=== PATIENT | female | born 1940 | race African-American/Black ===

== ENCOUNTER 2016-11-23 14:10 | Inpatient (IN) | payer OTHER ==
[2016-11-23] VITALS (23 sets, daily range): BP systolic 103–140; BP diastolic 45–95
[~2016-11-23] VITALS: Ht 160 cm; Wt 47.6 kg
[2016-11-23] MEDS ORDERED: SODIUM CHLORIDE 0.9% 1000ML BAG (SEPSIS BOLUS) IV ONE (14:45)
[2016-11-23 15:20] LABS: HEMATOCRIT. 51.8 % (36.0-48.0); MEAN CORPUSCULAR HEMOGLOBIN 29.5 pg (28.0-32.0); MEAN CORPUSCULAR VOLUME 89.6 fL (81.0-99.0); MEAN PLATELET VOLUME 8.9 fl (7.4-10.4); PLATELET 548 x1000/uL (130-400); RED BLOOD CELL COUNT 5.78 mill/uL (4.2-5.4); RED CELL DISTRIBUTION WIDTH 17.9 % (11.6-14.6)
[2016-11-23 15:21] LABS: CLARITY URINE CLEAR (CLEAR); COLOR URINE YELLOW (YELLOW); GLUCOSE URINE NEGATIVE (NEGATIVE); KETONES URINE NEGATIVE (NEGATIVE); LEUKOCYTE ESTERASE URINE NEGATIVE (NEGATIVE); NITRITE URINE NEGATIVE (NEGATIVE); OCCULT BLOOD URINE 1+ (NEGATIVE); PROTEIN URINE 2+ (NEGATIVE); SPECIFIC GRAVITY URINE 1.018 (1.005-1.030)
[2016-11-23 15:45] LABS: INR 1.3; PROTHROMBIN TIME 13.6 sec (9.4-11.6)
[2016-11-23] MEDS ORDERED: LEVOFLOXACIN 750MG PREMIX 150 ML IV NR (16:00)
[2016-11-23] MEDS ORDERED: METHYLPREDNISOLONE SOD SUCC 125 MG/2 ML VIAL IV ONE (16:00)
[2016-11-23] MEDS ORDERED: MIDAZOLAM HCL 50 MG in DEXTROSE 5% WATER 40 ML IV ONE (16:00)
[2016-11-23] MEDS ORDERED: MIDAZOLAM HCL 50 MG in DEXTROSE 5% WATER 40 ML IV NR (16:00)
[2016-11-23 16:01] LABS: CHLORIDE 105 mEq/L (98-107)
[2016-11-23 16:08] LABS: CARBON DIOXIDE 25 mEq/L (21-32)
[2016-11-23] MEDS ORDERED: VANCOMYCIN 1 G PREMIX 200 ML IV SCH (16:15)
[2016-11-23 16:21] LABS: BG BASE EXCESS -5.5 mmol/L (-2.0-2.0); BG DEOXYHEMOGLOBIN 0.8 % (0.0-5.0); BG FRACTION INSPIRED OXYGEN 100; BG HCO3 ACT 26.2 mmol/L (22.0-26.0); BG METHEMOGLOBIN 0.5 % (0.0-1.5); BG OXYGEN SATURATION 99.2 % (92.0-98.5); BG OXYHEMOGLOBIN 94.7 % (94.0-97.0); BG PCO2 79.5 mmHg (35.0-45.0); BG PH 7.135 (7.350-7.450); BG PO2 325.6 mmHg (75.0-100.0); BG SAMPLE SITE RIGHT BRACHIAL; BG TIDAL VOLUME(mL) 450 mL; BG TOTAL HEMOGLOBIN 17.6 g/dL (12.0-18.0); BG VENT MODE VENT - A/C; BG VENT RATE 12 set
[2016-11-23] MEDS ORDERED: ETOMIDATE 2MG/ML 10ML VIAL IV STA (16:26)
[2016-11-23] MEDS ORDERED: SUCCINYLCHOLINE CHLORIDE 200MG/10ML VIAL IV ONE (16:30)
[2016-11-23] MEDS ORDERED: ETOMIDATE 2MG/ML 10ML VIAL IV ONE (16:30)
[2016-11-23 16:32] LABS: PLATELET ESTIMATE INCREASED
[2016-11-23 18:01] LABS: TROPONIN I 0.05 ng/mL (0.00-0.04)
[2016-11-23 18:41] LABS: BG BASE EXCESS -3.2 mmol/L (-2.0-2.0); BG CARBOXYHEMOGLOBIN 2.3 % (0.5-1.5); BG DEOXYHEMOGLOBIN 1.5 % (0.0-5.0); BG FRACTION INSPIRED OXYGEN 60; BG HCO3 ACT 20.8 mmol/L (22.0-26.0); BG METHEMOGLOBIN 0.5 % (0.0-1.5); BG OXYGEN SATURATION 98.5 % (92.0-98.5); BG OXYHEMOGLOBIN 95.7 % (94.0-97.0); BG PCO2 34.9 mmHg (35.0-45.0); BG PH 7.393 (7.350-7.450); BG PO2 140.8 mmHg (75.0-100.0); BG SAMPLE SITE RIGHT BRACHIAL; BG TIDAL VOLUME(mL) 550 mL; BG TOTAL HEMOGLOBIN 16.6 g/dL (12.0-18.0); BG VENT MODE VENT - A/C; BG VENT RATE 20 set
[2016-11-23] MEDS: DEXT 5%/0.45% NACL 1000ML 1,000 ML IV SCH (19:53)
[2016-11-23] MEDS ORDERED: SODIUM CHLORIDE 0.9% 1,000 ML IV SCH (21:12)
[2016-11-23] MEDS: PIPERACILLIN/TAZ 2.25G PREMIX 50 ML IV SCH (22:14)
[2016-11-24] VITALS (44 sets, daily range): BP systolic 98–140; BP diastolic 55–96
[2016-11-24] MEDS: LORAZEPAM 2MG/ML CPJ IV PRN ×4 (02:50→17:42)
[2016-11-24] MEDS: DEXT 5%/0.45% NACL 1000ML 1,000 ML IV SCH ×3 (04:55→23:17)
[2016-11-24] MEDS: PIPERACILLIN/TAZ 2.25G PREMIX 50 ML IV SCH ×3 (05:40→23:17)
[2016-11-24] MEDS: PANTOPRAZOLE SODIUM 40 MG/VIAL IV SCH (08:58)
[2016-11-24 10:58] LABS: HEMATOCRIT. 47.9 % (36.0-48.0); HEMOGLOBIN. 16.1 g/dL (12.0-16.0); MEAN CORPUSCULAR HEMOGLOBIN 29.1 pg (28.0-32.0); MEAN CORPUSCULAR VOLUME 86.8 fL (81.0-99.0); MEAN PLATELET VOLUME 8.8 fl (7.4-10.4); PLATELET 401 x1000/uL (130-400); RED BLOOD CELL COUNT 5.52 mill/uL (4.2-5.4)
[2016-11-24 12:10] LABS: PLATELET ESTIMATE NORMAL
[2016-11-24] MEDS: VANCOMYCIN 500 MG PREMIX 100 ML IV SCH (13:17)
[2016-11-24] MEDS: METHYLPREDNISOLONE SOD SUCC 40 MG/ML VIAL IV SCH ×2 (14:58→23:17)
[2016-11-24] MEDS: ENOXAPARIN 30MG/0.3ML SYR SUBCUT SCH (14:59)
[2016-11-24 15:19] LABS: BG BASE EXCESS 0.8 mmol/L (-2.0-2.0); BG CARBOXYHEMOGLOBIN 0.5 % (0.5-1.5); BG DEOXYHEMOGLOBIN 1.7 % (0.0-5.0); BG FRACTION INSPIRED OXYGEN 40; BG HCO3 ACT 25.5 mmol/L (22.0-26.0); BG METHEMOGLOBIN 0.2 % (0.0-1.5); BG OXYGEN SATURATION 98.3 % (92.0-98.5); BG OXYHEMOGLOBIN 97.6 % (94.0-97.0); BG PCO2 41.4 mmHg (35.0-45.0); BG PH 7.408 (7.350-7.450); BG PO2 124.1 mmHg (75.0-100.0); BG SAMPLE SITE RIGHT BRACHIAL; BG TIDAL VOLUME(mL) 450 mL; BG TOTAL HEMOGLOBIN 16.9 g/dL (12.0-18.0); BG VENT MODE VENT - A/C; BG VENT RATE 14 set
[2016-11-24] MEDS: IPRATROPIUM/ALBUTEROL 0.5-3(2.5)MG/3ML NEB HHN SCH ×2 (16:14→20:31)
[2016-11-25] VITALS (24 sets, daily range): BP systolic 100–132; BP diastolic 56–88
[2016-11-25] MEDS: IPRATROPIUM/ALBUTEROL 0.5-3(2.5)MG/3ML NEB HHN SCH ×7 (00:27→23:40)
[2016-11-25] MEDS: DEXT 5%/0.45% NACL 1000ML 1,000 ML IV SCH (03:00)
[2016-11-25] MEDS: PIPERACILLIN/TAZ 2.25G PREMIX 50 ML IV SCH ×3 (05:12→21:17)
[2016-11-25] MEDS: ENOXAPARIN 30MG/0.3ML SYR SUBCUT SCH (08:53)
[2016-11-25] MEDS: METHYLPREDNISOLONE SOD SUCC 40 MG/ML VIAL IV SCH ×2 (08:53→19:54)
[2016-11-25] MEDS: PANTOPRAZOLE SODIUM 40 MG/VIAL IV SCH (08:53)
[2016-11-25] MEDS: VANCOMYCIN 500 MG PREMIX 100 ML IV SCH (08:54)
[2016-11-25 09:51] LABS: HEMATOCRIT. 44.8 % (36.0-48.0); MEAN CORPUSCULAR VOLUME 86.6 fL (81.0-99.0); MEAN PLATELET VOLUME 9.1 fl (7.4-10.4); PLATELET 392 x1000/uL (130-400); RED BLOOD CELL COUNT 5.18 mill/uL (4.2-5.4); RED CELL DISTRIBUTION WIDTH 16.8 % (11.6-14.6)
[2016-11-25 10:34] LABS: PLATELET ESTIMATE NORMAL
[2016-11-25] MEDS ORDERED: POTASSIUM CHLORIDE 20MEQ/PACKET PO SCH (11:30)
[2016-11-25] MEDS: SODIUM CHLORIDE 0.45% 1,000 ML IV SCH (12:12)
[2016-11-25] MEDS: LORAZEPAM 2MG/ML CPJ IV PRN (12:23)
[2016-11-25] MEDS ORDERED: SUCCINYLCHOLINE CHLORIDE 200MG/10ML VIAL IV ONE (15:03)
[2016-11-25] MEDS ORDERED: ETOMIDATE 2MG/ML 10ML VIAL IV ONE (15:03)
[2016-11-25] MEDS ORDERED: DEXTROSE 50% WATER 50ML SYRINGE IV PRN (19:45)
[2016-11-25] MEDS ORDERED: AMLO10TA80 PO (23:41)
[2016-11-25] MEDS ORDERED: HYDR100T26 PO (23:41)
[2016-11-25] MEDS ORDERED: VALS320T2 PO (23:41)
[2016-11-25] MEDS ORDERED: METO-411 PO (23:41)
[2016-11-25] MEDS ORDERED: TORS20TA4 PO (23:41)
[2016-11-26] VITALS (24 sets, daily range): BP systolic 98–137; BP diastolic 53–80
[2016-11-26] MEDS: INSULIN LISPRO 100 UNITS/ML SUBCUT SCH ×5 (00:37→23:36)
[2016-11-26] MEDS: IPRATROPIUM/ALBUTEROL 0.5-3(2.5)MG/3ML NEB HHN SCH ×5 (03:50→20:22)
[2016-11-26] MEDS: PIPERACILLIN/TAZ 2.25G PREMIX 50 ML IV SCH ×3 (05:29→21:03)
[2016-11-26] MEDS: SODIUM CHLORIDE 0.45% 1,000 ML IV SCH ×2 (05:30→23:35)
[2016-11-26] MEDS: BLOOD SUGAR DIAGNOSTIC STRIP TEST SCH ×5 (05:30→23:35)
[2016-11-26] MEDS: LORAZEPAM 2MG/ML CPJ IV PRN ×3 (05:44→18:47)
[2016-11-26 06:04] LABS: HEMATOCRIT. 46.7 % (36.0-48.0); HEMOGLOBIN. 15.8 g/dL (12.0-16.0); MEAN CORPUSCULAR HEMOGLOBIN 29.3 pg (28.0-32.0); MEAN CORPUSCULAR VOLUME 86.4 fL (81.0-99.0); MEAN PLATELET VOLUME 9.2 fl (7.4-10.4); PLATELET 394 x1000/uL (130-400); RED CELL DISTRIBUTION WIDTH 16.9 % (11.6-14.6)
[2016-11-26] MEDS: PANTOPRAZOLE SODIUM 40 MG/VIAL IV SCH (08:15)
[2016-11-26] MEDS: VANCOMYCIN 500 MG PREMIX 100 ML IV SCH (08:15)
[2016-11-26] MEDS: METHYLPREDNISOLONE SOD SUCC 40 MG/ML VIAL IV SCH ×2 (08:15→20:56)
[2016-11-26] MEDS: ENOXAPARIN 30MG/0.3ML SYR SUBCUT SCH (08:16)
[2016-11-26 12:00] LABS: PLATELET ESTIMATE NORMAL
[2016-11-26] MEDS: SILDENAFIL CITRATE 20MG TABLET PO SCH ×2 (14:26→21:03)
[2016-11-27] VITALS (24 sets, daily range): BP systolic 100–139; BP diastolic 52–80
[2016-11-27] MEDS: IPRATROPIUM/ALBUTEROL 0.5-3(2.5)MG/3ML NEB HHN SCH ×7 (00:14→23:40)
[2016-11-27] MEDS: LORAZEPAM 2MG/ML CPJ IV PRN ×2 (03:25→19:30)
[2016-11-27] MEDS: PIPERACILLIN/TAZ 2.25G PREMIX 50 ML IV SCH ×3 (05:21→21:12)
[2016-11-27] MEDS: BLOOD SUGAR DIAGNOSTIC STRIP TEST SCH ×3 (05:22→18:26)
[2016-11-27] MEDS: SILDENAFIL CITRATE 20MG TABLET PO SCH ×3 (05:22→21:12)
[2016-11-27] MEDS: VANCOMYCIN 750 MG PREMIX 150 ML IV SCH (05:22)
[2016-11-27] MEDS: INSULIN LISPRO 100 UNITS/ML SUBCUT SCH ×3 (05:24→18:21)
[2016-11-27 06:55] LABS: HEMATOCRIT. 46.3 % (36.0-48.0); HEMOGLOBIN. 15.6 g/dL (12.0-16.0); MEAN CORPUSCULAR HEMOGLOBIN 29.4 pg (28.0-32.0); MEAN CORPUSCULAR VOLUME 86.9 fL (81.0-99.0); MEAN PLATELET VOLUME 8.9 fl (7.4-10.4); PLATELET 415 x1000/uL (130-400); RED BLOOD CELL COUNT 5.32 mill/uL (4.2-5.4); RED CELL DISTRIBUTION WIDTH 17.1 % (11.6-14.6)
[2016-11-27 07:10] LABS: CARBON DIOXIDE 29 mEq/L (21-32); CHLORIDE 108 mEq/L (98-107)
[2016-11-27] MEDS: PANTOPRAZOLE SODIUM 40 MG/VIAL IV SCH (08:09)
[2016-11-27] MEDS: METHYLPREDNISOLONE SOD SUCC 40 MG/ML VIAL IV SCH ×2 (08:09→21:12)
[2016-11-27] MEDS: ENOXAPARIN 30MG/0.3ML SYR SUBCUT SCH (08:10)
[2016-11-27 13:48] LABS: PLATELET ESTIMATE INCREASED
[2016-11-27] MEDS: SODIUM CHLORIDE 0.45% 1,000 ML IV SCH (14:18)
[2016-11-27] MEDS ORDERED: MORPHINE SULFATE 4 MG/ML CPJ (NOT FOR IM USE) IV PRN (22:15)
[2016-11-28] VITALS (24 sets, daily range): BP systolic 100–134; BP diastolic 47–80
[2016-11-28] MEDS: BLOOD SUGAR DIAGNOSTIC STRIP TEST SCH ×5 (00:01→23:55)
[2016-11-28] MEDS: METRONIDAZOLE 250MG TABLET PO SCH ×4 (00:52→21:01)
[2016-11-28] MEDS: LORAZEPAM 2MG/ML CPJ IV PRN ×2 (01:26→20:34)
[2016-11-28] MEDS: IPRATROPIUM/ALBUTEROL 0.5-3(2.5)MG/3ML NEB HHN SCH ×5 (03:53→20:05)
[2016-11-28] MEDS: PIPERACILLIN/TAZ 2.25G PREMIX 50 ML IV SCH ×3 (05:17→21:01)
[2016-11-28] MEDS: VANCOMYCIN 750 MG PREMIX 150 ML IV SCH (05:17)
[2016-11-28] MEDS: SILDENAFIL CITRATE 20MG TABLET PO SCH ×3 (05:18→21:01)
[2016-11-28] MEDS: INSULIN LISPRO 100 UNITS/ML SUBCUT SCH ×5 (05:18→23:55)
[2016-11-28] MEDS: SODIUM CHLORIDE 0.45% 1,000 ML IV SCH ×2 (05:20→23:55)
[2016-11-28 06:32] LABS: HEMATOCRIT. 47.1 % (36.0-48.0); HEMOGLOBIN. 15.6 g/dL (12.0-16.0); MEAN CORPUSCULAR HEMOGLOBIN 28.7 pg (28.0-32.0); MEAN CORPUSCULAR VOLUME 86.4 fL (81.0-99.0); MEAN PLATELET VOLUME 9.1 fl (7.4-10.4); PLATELET 437 x1000/uL (130-400); RED BLOOD CELL COUNT 5.46 mill/uL (4.2-5.4); RED CELL DISTRIBUTION WIDTH 17.3 % (11.6-14.6)
[2016-11-28 07:04] LABS: CARBON DIOXIDE 31 mEq/L (21-32); CHLORIDE 105 mEq/L (98-107)
[2016-11-28] MEDS: PANTOPRAZOLE SODIUM 40 MG/VIAL IV SCH (08:40)
[2016-11-28] MEDS: METHYLPREDNISOLONE SOD SUCC 40 MG/ML VIAL IV SCH ×2 (08:40→21:01)
[2016-11-28] MEDS: ENOXAPARIN 30MG/0.3ML SYR SUBCUT SCH (08:42)
[2016-11-28 09:12] LABS: NUCLEATED RED BLOOD CELLS 2 /100 WBC; PLATELET ESTIMATE INCREASED
[2016-11-28 16:05] LABS: BG BASE EXCESS 3.3 mmol/L (-2.0-2.0); BG CARBOXYHEMOGLOBIN 0.5 % (0.5-1.5); BG DEOXYHEMOGLOBIN 2.9 % (0.0-5.0); BG FRACTION INSPIRED OXYGEN 40; BG HCO3 ACT 28.2 mmol/L (22.0-26.0); BG METHEMOGLOBIN 0.3 % (0.0-1.5); BG OXYGEN SATURATION 97.1 % (92.0-98.5); BG OXYHEMOGLOBIN 96.3 % (94.0-97.0); BG PCO2 43.8 mmHg (35.0-45.0); BG PH 7.427 (7.350-7.450); BG PO2 86.8 mmHg (75.0-100.0); BG SAMPLE SITE RIGHT BRACHIAL; BG TIDAL VOLUME(mL) 450 mL; BG TOTAL HEMOGLOBIN 16.9 g/dL (12.0-18.0); BG VENT MODE VENT - A/C; BG VENT RATE 14 set
[2016-11-29] VITALS (20 sets, daily range): BP systolic 96–147; BP diastolic 48–101
[2016-11-29] MEDS: IPRATROPIUM/ALBUTEROL 0.5-3(2.5)MG/3ML NEB HHN SCH ×5 (00:42→17:16)
[2016-11-29] MEDS: LORAZEPAM 2MG/ML CPJ IV PRN ×4 (02:12→18:28)
[2016-11-29] MEDS: METRONIDAZOLE 250MG TABLET PO SCH ×2 (05:29→13:47)
[2016-11-29] MEDS: BLOOD SUGAR DIAGNOSTIC STRIP TEST SCH ×3 (05:29→18:20)
[2016-11-29] MEDS: PIPERACILLIN/TAZ 2.25G PREMIX 50 ML IV SCH ×2 (05:29→13:47)
[2016-11-29] MEDS: SILDENAFIL CITRATE 20MG TABLET PO SCH ×2 (05:29→13:47)
[2016-11-29] MEDS: VANCOMYCIN 750 MG PREMIX 150 ML IV SCH (05:29)
[2016-11-29] MEDS: INSULIN LISPRO 100 UNITS/ML SUBCUT SCH ×3 (05:39→18:17)
[2016-11-29] MEDS: METHYLPREDNISOLONE SOD SUCC 40 MG/ML VIAL IV SCH (08:34)
[2016-11-29] MEDS: PANTOPRAZOLE SODIUM 40 MG/VIAL IV SCH (08:34)
[2016-11-29 08:51] LABS: HEMATOCRIT. 46.9 % (36.0-48.0); HEMOGLOBIN. 15.7 g/dL (12.0-16.0); MEAN CORPUSCULAR HEMOGLOBIN 28.9 pg (28.0-32.0); MEAN CORPUSCULAR VOLUME 86.4 fL (81.0-99.0); MEAN PLATELET VOLUME 8.8 fl (7.4-10.4); PLATELET 489 x1000/uL (130-400); RED BLOOD CELL COUNT 5.43 mill/uL (4.2-5.4); RED CELL DISTRIBUTION WIDTH 17.4 % (11.6-14.6)
[2016-11-29 09:09] LABS: CARBON DIOXIDE 30 mEq/L (21-32); CHLORIDE 102 mEq/L (98-107)
[2016-11-29 09:34] LABS: PLATELET ESTIMATE INCREASED
[2016-11-29] MEDS: ENOXAPARIN 30MG/0.3ML SYR SUBCUT SCH (10:44)
[2016-11-29] MEDS: SODIUM CHLORIDE 0.45% 1,000 ML IV SCH (16:09)
[2016-11-29] MEDS ORDERED: PIPERACILLIN/TAZ 2.25G PREMIX 50 ML IV SCH (22:00)
== END 2016-11-29 19:50 | DRG 870 ==
LOC: ER 14:42 → EDBEDREQSVC 14:52 → EDBEDREQ 14:52 → ENRESERV 15:14 → CVICU 16:38 → EDBEDREQTM 16:44 → EDBEDREQ 16:44
PROVIDERS: ADMIT Internal Medicine; ATTEND Internal Medicine
PROC: 0BH17EZ Insertion of Endotracheal Airway into Trachea, Via Natural or Artificial Opening (ICD-10-PCS; principal; 2016-11-23)
PROC: 5A1955Z Respiratory Ventilation, Greater than 96 Consecutive Hours (ICD-10-PCS; 2016-11-23)
DX: A41.9 Sepsis, unspecified organism (principal); J96.01 Acute respiratory failure with hypoxia; J18.9 Pneumonia, unspecified organism; G93.41 Metabolic encephalopathy; N17.9 Acute kidney failure, unspecified; I11.0 Hypertensive heart disease with heart failure; J44.0 Chronic obstructive pulmonary disease with (acute) lower respiratory infection; I50.9 Heart failure, unspecified; J44.1 Chronic obstructive pulmonary disease with (acute) exacerbation; Z60.2 Problems related to living alone; I25.10 Atherosclerotic heart disease of native coronary artery without angina pectoris; I25.2 Old myocardial infarction; Z88.2 Allergy status to sulfonamides; Z88.8 Allergy status to other drugs, medicaments and biological substances
CPT/HCPCS: 31500; 31525; 36415; 36600; 70450; 71010; 80048; 80053; 80202; 81001; 82375; 82805; 82962; 83605; 83735; 83880; 84484; 85025; 85610; 87040; 87070; 87086; 93005; 93306; 93970; 94002; 94003; 94640; 94664; 96365; 96367; 96375; 99291; 99292; A6261; C9113; J0330; J1650; J1815; J1956; J2060; J2250; J2543; J2920; J2930; J3370; J3490; J7030; J7060; J7620; A4315